=== PATIENT | male | born 1980 | race Caucasian/White ===

== ENCOUNTER 2021-05-11 05:16 | Day surgery (SDC) | payer OTHER ==
[2021-05-10 09:46] VITALS: BMI 33.0
[2021-05-11] MEDS ORDERED: LIDOCAINE HCL 1%, 10 MG/ML (20ML VIAL) ONE (08:38)
[2021-05-11] MEDS ORDERED: BUPIVACAINE HCL/PF 0.5% (5MG/ML) 10 ML VIAL ONE (08:39)
[2021-05-11] MEDS ORDERED: PROPOFOL 20 ML ONE (10:52)
[2021-05-11] MEDS ORDERED: MIDAZOLAM HCL 2 MG/2 ML SINGLE DOSE VIAL ONE ×3 (10:52→11:28)
[2021-05-11] MEDS ORDERED: ceFAZolin SODIUM 1 GM VIAL IVPB ONE (10:55)
[2021-05-11] MEDS ORDERED: BUPIVACAINE HCL/PF 0.5% (5MG/ML) 10 ML VIAL IJ ONE (11:02)
[2021-05-11] MEDS ORDERED: LIDOCAINE HCL 1%, 10 MG/ML (20ML VIAL) NR ONE (11:02)
[2021-05-11] MEDS ORDERED: DEXAMETHASONE SOD PHOSPHATE 4 MG/1 ML VIAL ONE (11:38)
[2021-05-11] MEDS ORDERED: KETOROLAC TROMETHAMINE 30 MG/1 ML VIAL ONE (11:38)
[2021-05-11] MEDS ORDERED: ceFAZolin SODIUM 1 GM VIAL ONE (11:38)
[2021-05-11 13:41] VITALS: BP 136/91; PULSE 94; TEMP 97.4
== END 2021-05-11 14:00 | disposition home or self-care (01) ==
LOC: JASU-SURG 05:16
PROVIDERS: ATTEND Podiatrist Foot Surgery
PROC: 0SQP0ZZ Repair Right Toe Phalangeal Joint, Open Approach (ICD-10-PCS; principal; 2021-05-11 10:30)
DX: S93.124A Dislocation of metatarsophalangeal joint of right lesser toe(s), initial encounter (principal); M20.41 Other hammer toe(s) (acquired), right foot; Y99.9 Unspecified external cause status
CPT/HCPCS: 76000-TC-FY; 88304-TC; 88311-TC; 97116-GP